=== PATIENT | male | born 1980 | race African-American/Black ===

== ENCOUNTER 2019-03-04 11:24 | Inpatient (IN) ==
[2019-03-04] MEDS ORDERED: ASPIRIN PO ONE (11:34)
[2019-03-04] MEDS ORDERED: PEPCID IV ONE (11:39)
[2019-03-04] MEDS ORDERED: G.I. COCKTAIL PO ONE (11:39)
[2019-03-04] MEDS ORDERED: SODIUM CHLORIDE 0.9% INJ ONE (11:39)
[2019-03-04 12:15] LABS: BASO# 0.04 X1000 (0.0-0.2); BASO% 0.5 % (0.0-0.8); EOS# 0.07 X1000 (0.0-0.7); EOS% 0.9 % (0.0-10.0); HEMATOCRIT 42.5 % (42.0-52.0); HEMOGLOBIN 13.7 g/dL (14.0-18.0); IMM GRAN# 0.03 X1000 (0.0-0.04); IMM GRAN% 0.4 % (0.0-0.5); LYMPH# 2.08 X1000 (1.2-3.4); LYMPH% 28.1 % (20.5-51.1); MCHC 32.2 g/dL (33-37); MCV 93.2 FL (81-99); MONO% 10.8 % (1.7-9.3); MPV 9.7 FL (7.4-10.4); NEUT# 4.37 X1000 (1.4-6.5); NEUT% 59.3 % (42.2-75.2); PLT 225 X1000 (130-400); RBC 4.56 XMIL (4.7-6.1); RDW 13.1 % (11.5-14.5); WBC 7.39 X1000 (4.8-10.8)
--- NOTE | 2019-03-04 12:21 | Diag Imaging Result Doc PS360 ---
CHEST-2 VIEWS - 03/04/2019 INDICATION: chest pain COMPARISON: 04/16/2015 FINDINGS: The lungs are normally expanded and clear. Heart size and mediastinal contours are normal. No pneumothorax or pleural effusion. IMPRESSION: Negative exam. Electronically signed by Ruben Thomas 03/04/2019 12:18 PM
[2019-03-04 12:30] LABS: INR 0.95; PROTIME 13.1 Seconds (11.0-16.0)
[2019-03-04 12:31] LABS: PTT 29.4 Seconds (22.3-41.8)
[2019-03-04 12:34] LABS: AGAP 15; ALBUMIN 4.7 g/dL (3.5-5.0); ALKALINE PHOSPHATASE 51 U/L (32-122); BUN 9 mg/dL (8-22); CALCIUM 9.1 mg/dL (8.8-10.2); CHLORIDE 99 mmol/L (98-107); COSMO 271; CREATININE 0.7 mg/dL (0.7-1.2); ESTIMATED GFR > 60; GLUCOSE 98 mg/dL (70-104); GOT 26 U/L (10-34); GPT 16 U/L (10-44); POTASSIUM 4.2 mmol/L (3.5-5.1); SODIUM 136 mmol/L (136-145); TCO2 23 mmol/L (25-35); TOTAL PROTEIN 8.1 g/dL (6.3-8.3)
[2019-03-04 12:36] LABS: CK PROFILE 561 U/L (24-204)
[2019-03-04] MEDS ORDERED: APRESOLINE IV ONE ×2 (12:46→13:16)
[2019-03-04 12:58] LABS: CK INDEX 0.6 (0.0-2.5); CK-MB 3.64 ng/mL (0.0-5.0)
[2019-03-04] MEDS ORDERED: LOPRESSOR PO ONE ×2 (14:06→15:01)
--- NOTE | 2019-03-04 14:51 | PROVIDER DOCUMENTATION ---
This chart was entered by Joy Rivera Scribe, acting as scribe for Slick Antunez MD. HPI-Chest Pain - General Chief Complaint: Chest Pain Stated Complaint: CHEST PAIN Time Seen by Provider: 03/04/19 11:33 Source: patient Allergies/Adverse Reactions: Patient Allergies Allergy/AdvReac Type Severity Reaction Status Date / Time No Known Allergies Allergy Verified 03/04/19 11:45 Home Medications: Home Medication List Medication Instructions Recorded Confirmed Last Taken Type NK [No Home Medications] 03/04/19 03/04/19 Unknown History - History of Present Illness-CP Nature of Presenting Problem: Patient is a 38 year old male who presents with chest pain. States chest pain has been intermittent since 0930 this morning. Denies nausea, vomiting, diaphoresis, and shortness of breath. Location: reports: epigastric, other (left side) Chest Pain Radiation: reports: no radiation Quality of Pain: reports: aching Severity in ED: mild Onset/Duration: this morning (0930) Timing: still present, intermittent Context/Activities at Onset: reports: light activity Associated Symptoms: reports: denies symptoms Similar Symptoms Previously?: No Recently Seen Here or By Another Healthcare Provider: No Review of Systems - Adult - REVIEW OF SYSTEMS - ADULT Constitutional: reports: no symptoms reported Eyes: reports: no symptoms reported Ears, Nose, Mouth & Throat: reports: no symptoms reported Cardiovascular: reports: see HPI, chest pain Respiratory: reports: no symptoms reported Gastrointestinal: reports: no symptoms reported Genitourinary: reports: no symptoms reported Musculoskeletal: reports: no symptoms reported Integumentary: reports: no symptoms reported Neurological: reports: no symptoms reported Psychiatric: reports: no symptoms reported Endocrine: reports: no symptoms reported Hematologic/Lymphatic: reports: no symptoms reported Allergic/Immunologic: reports: no symptoms reported All Other Systems: Reviewed and Negative Past History - Adult - PAST MEDICAL HISTORY-ADULT Review of Records: reports: Nursing Assessment Review, Medications Reviewed, Social history reviewed & non-contributory. Major Childhood Illnesses: reports: denies history Cardiovascular: reports: HTN Respiratory: reports: denies history Gastrointestinal: reports: denies history Obstetrical/Gynecological: reports: denies history Genitourinary: reports: denies history Musculoskeletal: reports: denies history Neurological: reports: denies history Endocrine/Immune: reports: denies history Other Conditions: reports: denies history - PRIOR SURGERIES/PROCEDURES Surgical/Procedure History: reports: orthopedic (extremity) (Knee) - PRIOR HOSPITALIZATIONS Prior Hospitalizations: reports: none - IMMUNIZATION STATUS Childhood Immunizations: See Nurse Assessment Flu Vaccine: See Nurse Assessment - FAMILY HISTORY Family History: reviewed, not pertinent - SOCIAL HISTORY Smoking: cigarettes, less than 1 pack/day Provider spent 3-5 mins advising pt. on dangers of tobacco.: Discussed manners to quit use, and f/u contacts for add'l counseling. Substance Use: alcohol Alcohol Use Frequency: occasionally Physical Exam-General - PHYSICAL EXAM-ADULT Initial Vital Signs Reviewed: Yes - CONSTITUTIONAL General Appearance: alert, no apparent distress - EYES Eyes: PERRL/EOMI - HEAD, EARS, NOSE, MOUTH & THROAT HENMT: normocephalic/atraumatic, moist mucous membranes - NECK Neck: full range of motion, supple - RESPIRATORY Respiratory: chest non-tender, lungs clear, normal breath sounds, no pleuratic chest pain, no respiratory distress, no accessory muscle use. negative: pleural rub - CARDIOVASCULAR Cardiovascular: regular rate, rhythm, no edema, no gallop, no JVD, no murmur - GASTROINTESTINAL (ABDOMEN) Abdominal Exam: normal bowel sounds, soft, tenderness (mild epigastric) - MUSCULOSKELETAL Extremity: normal range of motion, non-tender, normal gait, normal inspection - SKIN Integumentary: normal color, normal turgor, warm/dry - NEUROLOGIC Neurologic: manager technical training II-XII nml as tested, grossly normal, no motor/sensory deficits - PSYCHIATRIC Psych/Mental Status: normal mood/affect, normal thought content, normal thought process, oriented x 3 - HEART Score HEART Score: History: Slightly Suspicious HEART Score: ECG: Non-Specific Repolarization Disturbance/LBBB/PM HEART Score: Age: < or = 45 Years HEART Score: Risk Factors for Atherosclerotic Disease: 1 or 2 Risk Factors HEART Score: Troponin: < or = Normal Limit Total HEART Score:: 2 Progress - PLAN OF CARE/RESULTS Progress/Plan/Lab Results: Vital Signs - 8 hr 03/04/19 11:27 03/04/19 12:42 03/04/19 13:56 Temperature 98.1 F Pulse Rate 89 83 91 H Respiratory Rate 18 15 20 Blood Pressure 191/136 175/121 166/92 O2 Sat by Pulse Oximetry 100 98 99 03/04/19 14:35 Temperature Pulse Rate 97 H Respiratory Rate 20 Blood Pressure 180/108 O2 Sat by Pulse Oximetry 97 Laboratory Results - last 24 hr 03/04/19 03/04/19 03/04/19 11:56 11:56 11:56 WBC 7.39 RBC 4.56 L Hgb 13.7 L Hct 42.5 MCV 93.2 MCH 30.0 MCHC 32.2 L RDW Std Deviation 13.1 Plt Count 225 MPV 9.7 Immature Gran % (Auto) 0.4 Neut % (Auto) 59.3 Lymph % (Auto) 28.1 [place] % (Auto) 10.8 H Eos % (Auto) 0.9 Baso % (Auto) 0.5 Immature Gran # (Auto) 0.03 Neut # (Auto) 4.37 Lymph # (Auto) 2.08 [place] # (Auto) 0.80 H Eos # (Auto) 0.07 Baso # (Auto) 0.04 PT INR PTT (Actin FS) Sodium 136 Potassium 4.2 Chloride 99 Carbon Dioxide 23 L Anion Gap 15 BUN 9 Creatinine 0.7 Estimated GFR/1.73 m2 > 60 BUN/Creatinine Ratio 13 Glucose 98 Calculated Osmolality 271 Calcium 9.1 Total Bilirubin 0.70 AST 26 ALT 16 Alkaline Phosphatase 51 Creatine Kinase 561 H Creatine Kinase Index 0.6 CK-MB (CK-2) 3.64 Troponin T High Sens [id number] Pept 25 Total Protein 8.1 Albumin 4.7 Globulin 3.0 Albumin/Globulin Ratio 1.0 03/04/19 03/04/19 11:56 11:56 WBC RBC Hgb Hct MCV MCH MCHC RDW Std Deviation Plt Count MPV Immature Gran % (Auto) Neut % (Auto) Lymph % (Auto) [place] % (Auto) Eos % (Auto) Baso % (Auto) Immature Gran # (Auto) Neut # (Auto) Lymph # (Auto) [place] # (Auto) Eos # (Auto) Baso # (Auto) PT 13.1 INR 0.95 PTT (Actin FS) 29.4 Sodium Potassium Chloride Carbon Dioxide Anion Gap BUN Creatinine Estimated GFR/1.73 m2 BUN/Creatinine Ratio Glucose Calculated Osmolality Calcium Total Bilirubin AST ALT Alkaline Phosphatase Creatine Kinase Creatine Kinase Index CK-MB (CK-2) Troponin T High Sens 12 [id number] Pept Total Protein Albumin Globulin Albumin/Globulin Ratio Orders Category Date Time Status Cardiac Monitoring DIRECTED Care 03/04/19 11:34 Active Oxygen Therapy- ED Nursing DIRECTED Care 03/04/19 11:34 Active Saline Loc NOW Care 03/04/19 11:34 Active CHEST-2 VIEWS [RAD] Stat Exams 03/04/19 11:34 Completed CBC WITH ELECTRONIC DIFF [HEME] Stat Lab 03/04/19 11:56 Completed CK PROFILE [SP CHEM] Stat Lab 03/04/19 11:56 Completed COMPREHENSIVE METABOLIC PANEL [CHEM] Stat Lab 03/04/19 11:56 Completed PRO B-NATRIURETIC PEPTIDE Stat Lab 03/04/19 11:56 Completed PROTIME WITH INR [COAG] Stat Lab 03/04/19 11:56 Completed PTT [COAG] Stat Lab 03/04/19 11:56 Completed TROPONIN T HIGH SENSITIVITY Stat Lab 03/04/19 11:56 Completed TROPONIN T HIGH SENSITIVITY Stat Lab 03/04/19 14:20 Received Aspirin Med 03/04/19 11:34 Discontinued 325 mg PO NOW ONE Famotidine [Pepcid] Med 03/04/19 11:39 Discontinued 20 mg IV NOW ONE Hydralazine [Apresoline] Med 03/04/19 12:46 Discontinued 10 mg IV NOW ONE Hydralazine [Apresoline] Med 03/04/19 13:16 Discontinued 10 mg IV NOW ONE Lido/Hilario Alk/Al&mg Hydrox [G.i. Cocktail] Med 03/04/19 11:39 Discontinued 30 ml PO NOW ONE Metoprolol [Lopressor] Med 03/04/19 14:06 Discontinued 25 mg PO NOW ONE Sodium Chloride 0.9% Med 03/04/19 11:39 Discontinued 5 - 10 ml INJ NOW ONE CP/SOB/Palp >45 yrs of Age Stat Oth 03/04/19 11:34 Ordered EKG [EKG] Stat Ther 03/04/19 11:34 Ordered Result Diagrams: 03/04/19 11:56 03/04/19 11:56 - REASSESSMENT Reassessment #1 Time Reassessed: 14:04 Status: improving (BP DOWN TO 166/92 AFTER 2ND ROUND OF IV HYDRALAZINE. , HR STILL SL > 100/MIN, INTERMITTENT MILD CP THAT IMPROVED WITH GASTRIC MEDS GIVEN.) Reassessment #2 Time Reassessed: 14:49 Status: unchanged (still some componenet of intermittent cp or gastric pains, t achycardia adn return to HTN fo BP was lowered.) - EKG 1 Time of EKG reading by physician:: 11:36 EKG Read and Signed by:: Slick Antunez EKG Interpretation (*Must complete 3 of following elements*): Abnormal Rate: 87 Rhythm: normal sinus rhythm with sinus arrhythmia [place]: normal IA Interval: normal Comments: possible anterior infarct, age undetermined 2 Time of EKG reading by physician:: 14:14 EKG Read and Signed by:: Slick Antunez EKG Interpretation (*Must complete 3 of following elements*): Abnormal Rate: 123 Rhythm: sinus tachycardia [place]: normal IA Interval: normal Comments: anterior infarct, age undetermined - XRAY 1 XRAY Study: Chest Impression: See EMR Report ( CHEST-2 VIEWS - 03/04/2019 INDICATION: chest pain COMPARISON: 04/16/2015 FINDINGS: The lungs are normally expanded and clear. Heart size and mediastinal contours are normal. No pneumothorax or pleural effusion. IMPRESSION: Negative exam. Electronically signed by Ruben Thomas 03/04/2019 12:18 PM 03/04/19 1218 Interpreting Physician: Ruben Thomas MD Dictated Date/Time: 03/04/19 1218 cc: Slick Antunez MD; None,PCP) - CONSULTS/PCP/HOSPITALIST Notification #1 *Consult/PCP/Hospitalist*: Dr. Glasgow paged at 1405 Time Discussed: 14:37 Reason/Comments: Dr. Antunez consulted with Dr. Glasgow about patient. Departure - Departure Date of Disposition Decision: 03/04/19 Time of Disposition Decision: 13:56 DIAGNOSIS: Uncontrolled hypertension, Tachycardia Chest pain Qualifiers: Chest pain type: unspecified Qualified Code(s): R07.9 - Chest pain, unspecified Gastritis Qualifiers: Gastritis type: unspecified gastritis Chronicity: unspecified Disposition: HOME 01 Certified Medical Emergency: Emergent Condition: Stable Additional Instructions: ED Follow Up Instructions: You have been treated by a care provider in the Emergency Department. These instructions are being provided to you so you can have an understanding of how to care for yourself upon discharge. Upon discharge from the Emergency Department, you are responsible for making arrangements for follow-up care by a physician of your choice. Take all prescribed medications as directed. Return to the Emergency Department immediately for any new or worsening symptoms. You may call the Physician Referral phone number at [phone] to obtain a list of Physicians who are taking new patients. Referrals and Follow-Ups: None,PCP [Primary Care Provider] - - Critical Care Note This patient required my direct & personal management of CC.: No Attestation - Physician/ JOEL Attestation The physician spent face to face time with patient:: Yes Advanced Practice Provider documentation review:: Supervising physician onsite and consulted in the evaluation and care of this patient. The physician did have a face to face encounter with the patient. This chart was documented by the indicated scribe, (Joy Rivera Scribe) and accurately reflects the services I performed and decisions made by me, Slick Antunez MD, as attested by the provider's signature.
[2019-03-04] MEDS ORDERED: NITROGLYCERIN TOP ONE (15:01)
[2019-03-04] MEDS ORDERED: TYLENOL PO ONE (15:02)
[2019-03-04] MEDS ORDERED: TYLENOL PO PRN (16:46)
[2019-03-04] MEDS ORDERED: APRESOLINE IV PRN (16:46)
[2019-03-04] MEDS ORDERED: ZOFRAN IV PRN (16:46)
[2019-03-04] MEDS ORDERED: NORVASC PO SCH (16:46)
--- NOTE | 2019-03-04 16:48 | EKG Report ---
Test Performed on : 03/04/2019 2:14:52 PM Test Reason : chest pain Blood Pressure : / mmHG Vent. Rate : 123 BPM Atrial Rate : 123 BPM P-R Int : 152 ms QRS Dur : 078 ms QT Int : 326 ms P-R-T Axes : 057 074 030 degrees QTc Int : 466 ms Sinus tachycardia. Anterior infarct (cited on or before 04-MAR-2019) Abnormal ECG When compared with ECG of 04-MAR-2019 11:36, (Unconfirmed) No significant change was found Unconfirmed Result
--- NOTE | 2019-03-04 16:52 | EKG Report ---
Test Performed on : 03/04/2019 11:36:02 AM Test Reason : ER Blood Pressure : / mmHG Vent. Rate : 087 BPM Atrial Rate : 087 BPM P-R Int : 148 ms QRS Dur : 076 ms QT Int : 354 ms P-R-T Axes : 050 070 044 degrees QTc Int : 425 ms Normal sinus rhythm. with sinus arrhythmia. Possible Anterior infarct , age undetermined Abnormal ECG When compared with ECG of 16-APR-2015 08:52, premature ventricular complexes. are no longer present Unconfirmed Result
[2019-03-04] MEDS: NICODERM PATCH TD SCH (17:39)
--- NOTE | 2019-03-04 18:36 | HISTORY AND PHYSICAL ---
PRIMARY CARE PHYSICIAN: None. CHIEF COMPLAINT: Intermittent chest pain that began around 9:30 a.m. this morning with no radiating pain. HISTORY OF PRESENTING ILLNESS: This is a 38-year-old male who presents to [facility] ER with complaints of intermittent chest pain that began around 9:30 a.m. Denied any radiating of pain. Denied any nausea, vomiting, diaphoresis, or shortness of breath. He was however noted to have an elevated blood pressure at 191/136. States he has a history of hypertension but does not take any medications on a routine basis. In the emergency room, he has been given 1 inch of nitroglycerin topically x1, metoprolol 25 mg p.o. x2 different dosages and Apresoline 10 mg IV x2 different dosages, Pepcid 20 mg IV x1, aspirin 325 mg p.o. x1, GI cocktail 30 mL p.o. x1, and he states that was the most effective for the chest pain he had been feeling. His laboratory data is unremarkable. Chest x-ray showed a negative exam. His heart score was 2. EKG showed normal sinus rhythm with a sinus arrhythmia at 87. After he arrived, he did have some sinus tachycardia via his 2nd EKG at 123. Currently at 88. So, he will be admitted for further evaluation and treatment. PAST MEDICAL HISTORY: Hypertension. PAST SURGICAL HISTORY: Bilateral knee surgery. FAMILY HISTORY: Reviewed and noncontributory. SOCIAL HISTORY: Currently lives with family. Smokes 1 pack of cigarettes a day and has done so for approximately 15 years. Drinks 4 beers daily and denies any illicit drug use. ALLERGIES: He has no known drug allergies. HOME MEDICATIONS: He does not take any medications on a routine basis. LABORATORY DATA: Showed a white blood cell count of 7.39, hemoglobin 13.7, hematocrit 42.5, platelets 225,000. PT and INR of 13.1 and 0.95. Sodium 136, potassium 4.2, chloride 99, CO2 23, BUN of 9, creatinine 0.7, glucose of 98. Creatine kinase was 561 with a CK-MB of 3.64. Troponin T high-sensitivity, initially was 12. Repeat 2 hours later was 10. Chest x-ray showed a negative exam. EKG on arrival showed normal sinus rhythm with a sinus arrhythmia at 87. Repeat about 2- 1/2 hours after arriving showed a sinus tachycardia at 123. He is now back to a normal sinus rhythm at 88. REVIEW OF SYSTEMS: He denied any fever, chills, blurred vision, dizziness. He was positive for chest pain that was intermittent that was nonradiating. Denied any nausea, vomiting, diaphoresis, shortness of breath, cough, or burning or hurting with urination. PHYSICAL EXAMINATION: GENERAL: On arrival, he had a temperature of 98.1 degrees, pulse 89, respirations 18, blood pressure 191/136, saturating 100% on room air. GENERAL: This is a 38-year-old male who is lying in the bed and answers questions appropriately. HEENT: Normocephalic, atraumatic. Normal ENT inspection. Oropharynx and nares are clear. EYES: Pupils are equal, round, and reactive to light and accommodation. Extraocular movements are intact. NECK: Normal inspection. Normal range of motion. LUNGS: Clear to auscultation bilaterally with equal lung expansion. Chest wall movement. HEART: Regular rate and rhythm. No murmurs, rubs, or gallops. ABDOMEN: Soft, nontender, nondistended. Bowel sounds are present x4 quadrants. MUSCULOSKELETAL: He has 5/5 strength x4 extremities. NEUROLOGICAL: The cranial nerves 2-12 appear grossly intact. ASSESSMENT: 1. Uncontrolled hypertension. 2. Chest pain, most likely secondary to #1. 3. Tobacco abuse. 4. Ethanol abuse. PLAN: He will be admitted to the medical unit at [place]. Placed on telemetry, healthy heart diet. We will check an echocardiogram in the a.m. Place him on Norvasc 5 mg p.o. daily, first dose today, hydralazine 10 mg IV q.4 hours p.r.n. for systolic blood pressure greater than 190, diastolic greater than 100. We will give him a nicotine patch 21 mg transdermally daily. It is not felt since he had 2 negative troponin T high-sensitivities that this is cardiac. This is most likely secondary to his elevated blood pressure, so there will be further orders after seen by attending. Dictated by SONG Shahid for Marco Glasgow MD cc: SONG Shahid MD
--- NOTE | 2019-03-04 20:00 | HISTORY AND PHYSICAL ---
ADDENDUM: Patient presented to the hospital with chest pain. has improved. His blood pressure is 191/136 upon initial presentation. We are going to admit him to the hospital. His troponins are normal. We are going to attempt to control his blood pressure. Further orders as needed. Please see full dictation. cc: Marco Glasgow MD MTDD
[2019-03-05 08:11] VITALS: BP 176/106
[2019-03-05] MEDS ORDERED: APRESOLINE PO SCH (09:00)
[2019-03-05] MEDS ORDERED: NORVASC PO SCH (09:00)
[2019-03-05] MEDS: NICODERM PATCH TD SCH (09:29)
--- NOTE | 2019-03-05 10:29 | DISCHARGE SUMMARY ---
ADMISSION DATE: 03/04/2019 DISCHARGE DATE: 03/05/2019 PRIMARY CARE PHYSICIAN: None. ADMISSION DIAGNOSES: 1. Uncontrolled hypertension. 2. Chest pain, likely secondary to uncontrolled hypertension. 3. Tobacco abuse. 4. Ethanol abuse. DISCHARGE DIAGNOSES: 1. Uncontrolled hypertension. 2. Chest pain, likely secondary to uncontrolled hypertension, resolved. 3. Tobacco abuse. 4. Ethanol abuse. SUMMARY OF FINDINGS: This is a 38-year-old male who presented to the ER with complaints of some intermittent chest pain that began around 9:30 that did not radiate. No nausea, vomiting, diaphoresis, or shortness of breath. He did have an elevated blood pressure of 196/136. States he has a history of hypertension, but does not take his medicines on a routine basis. In the emergency room, he was given multiple antihypertensive medications and admitted, placed on Norvasc 5 mg p.o. daily, hydralazine 10 mg IV every 4 hours p.r.n. for a systolic greater than 190, diastolic greater than 100. Also gave him nicotine patch 21 mg transdermally. He has had 2 negative T high sensitivities, and it is not felt that this was cardiac related but uncontrolled hypertension. He was increased on his Norvasc to 5 mg p.o. b.i.d., hydralazine 25 mg p.o. b.i.d., and it is now felt that he can safely be discharged home. DISCHARGE MEDICATIONS: Include Tylenol 650 mg p.o. every 6 hours p.r.n.; Norvasc 5 mg p.o. b.i.d., number 60 with no refills; hydralazine 25 mg p.o. b.i.d., number 60 with no refills; nicotine patch 21 mg transdermally daily, and we did discuss at length smoking cessation and he verbalized understanding. FOLLOWUP: We will have to give him the physician referral line for a followup, as he does not have a primary care physician but will most certainly need to obtain one. All discharge instructions were reviewed with the patient and he verbalized understanding. TIME SPENT: This is a 35 minute discharge. Dictated by SONG Shahid for Marco Glasgow MD cc: SONG Shahid MD
--- NOTE | 2019-03-05 15:34 | ECHO REPORT ---
ORDER DATE: 03/04/2019 INDICATION: Hypertension, chest pain. FINDINGS: 1. Right atrium appears mildly enlarged at 4.5 cm. 2. Mild tricuspid regurgitation. 3. Normal RV size and systolic function. 4. No significant pulmonic insufficiency. 5. Mild left atrial enlargement with a volume index of 31. 6. No mitral prolapse. Mild mitral regurgitation. 7. Normal LV size, end-diastolic dimension of 4.4 cm. Mild left ventricular hypertrophy with a posterior and interventricular septal wall thickness of 1.2 and 1.3 cm respectively. Normal LV systolic function. Estimated EF of 60% with normal wall motion. 8. Aortic valve opens well. It is trileaflet. No evidence of stenosis or insufficiency. 9. Aorta appears in normal visualized segments. 10. No pericardial effusion seen. 11. Inadequate evaluation for diastolic function. cc: MD Peri Ren CRNP
--- NOTE | 2019-03-05 22:57 | DISCHARGE SUMMARY ---
ADMISSION DATE: 03/04/2019 DISCHARGE DATE: 03/05/2019 HOSPITAL COURSE: Patient seen and examined by myself. Full note dictated and discussed with nurse practitioner. Patient currently is awake and alert. He is ambulating without any difficulty. He is asking to go home. His blood pressures although still markedly elevated, are markedly improved. Discussed with him that he needs to stop drinking, stop smoking. He will continue to follow outpatient with his primary care. cc: Marco Glasgow MD
== END 2019-03-05 09:42 | disposition home or self-care (01) | DRG 305 ==
LOC: P.ED 11:24 → P.MEDSURG 16:31
PROVIDERS: ATTEND Family Medicine